=== PATIENT | male | born 1950 | race Caucasian/White ===

== ENCOUNTER → 2019-11-27 08:18 | Outpatient (BNVA) | payer MEDICARE, MEDICAID, SELFPAY | PROVIDERS: PCP General Practice; Visit Provider Anesthesiology | DX: M54.5 Low back pain (principal); G89.29 Other chronic pain; M25.561 Pain in right knee; M25.562 Pain in left knee; M62.838 Other muscle spasm; Z79.891 Long term (current) use of opiate analgesic | CPT/HCPCS: 99214 ==

== ENCOUNTER → 2020-03-22 09:35 | Outpatient (BNVA) | payer MEDICARE, MEDICAID, SELFPAY | PROVIDERS: PCP General Practice; Visit Provider Nurse Practitioner | DX: G89.4 Chronic pain syndrome (principal); M54.2 Cervicalgia; M54.9 Dorsalgia, unspecified; Z79.891 Long term (current) use of opiate analgesic; M53.2X2 Spinal instabilities, cervical region; M50.322 Other cervical disc degeneration at C5-C6 level | CPT/HCPCS: 72040; 99213 ==

== ENCOUNTER 2020-03-22 10:32 | Outpatient (CLI) | payer MEDICARE, MEDICAID, SELFPAY ==
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
== END 2020-03-22 10:33 | disposition home or self-care (01) ==
PROVIDERS: Visit Provider Nurse Practitioner
DX: M53.2X2 Spinal instabilities, cervical region (principal); M50.322 Other cervical disc degeneration at C5-C6 level
CPT/HCPCS: 72040

== ENCOUNTER → 2020-05-25 08:39 | Outpatient (BNVA) | payer MEDICARE, MEDICAID, SELFPAY | PROVIDERS: PCP General Practice; Visit Provider Anesthesiology | DX: G89.4 Chronic pain syndrome (principal); M54.41 Lumbago with sciatica, right side; M54.42 Lumbago with sciatica, left side; M25.561 Pain in right knee; M25.562 Pain in left knee; M54.9 Dorsalgia, unspecified; M54.2 Cervicalgia; Z79.891 Long term (current) use of opiate analgesic | CPT/HCPCS: 99214 ==

== ENCOUNTER → 2020-07-22 08:49 | Outpatient (BNVA) | payer MEDICARE, MEDICAID, SELFPAY | PROVIDERS: PCP General Practice; Visit Provider Anesthesiology | DX: G89.29 Other chronic pain (principal); M54.9 Dorsalgia, unspecified; M54.2 Cervicalgia; M25.561 Pain in right knee; M25.562 Pain in left knee; M62.838 Other muscle spasm; Z79.891 Long term (current) use of opiate analgesic | CPT/HCPCS: 99214 ==

== ENCOUNTER → 2020-09-22 09:10 | Outpatient (BNVA) | payer MEDICARE, MEDICAID, SELFPAY | PROVIDERS: PCP General Practice; Visit Provider Anesthesiology | DX: M54.9 Dorsalgia, unspecified (principal); Z79.891 Long term (current) use of opiate analgesic; M25.561 Pain in right knee; M25.562 Pain in left knee; M54.2 Cervicalgia; G89.29 Other chronic pain | CPT/HCPCS: 99214 ==

== ENCOUNTER → 2020-11-18 09:39 | Outpatient (BNVA) | payer MEDICARE, MEDICAID, SELFPAY | PROVIDERS: PCP General Practice; Visit Provider Anesthesiology | DX: G89.29 Other chronic pain (principal); M54.2 Cervicalgia; M54.9 Dorsalgia, unspecified; M25.561 Pain in right knee; M25.562 Pain in left knee; M62.838 Other muscle spasm; Z79.891 Long term (current) use of opiate analgesic | CPT/HCPCS: 99214 ==

== ENCOUNTER → 2021-01-11 09:50 | Outpatient (BNVA) | payer MEDICARE, MEDICAID, SELFPAY | PROVIDERS: PCP General Practice; Visit Provider Nurse Practitioner | DX: G89.29 Other chronic pain (principal); M54.2 Cervicalgia; M54.9 Dorsalgia, unspecified; M62.838 Other muscle spasm; M25.561 Pain in right knee; M25.562 Pain in left knee; Z79.891 Long term (current) use of opiate analgesic | CPT/HCPCS: 99213 ==

== ENCOUNTER → 2021-04-05 09:41 | Outpatient (BNVA) | payer MEDICARE, MEDICAID, SELFPAY | PROVIDERS: PCP General Practice; Visit Provider Nurse Practitioner | DX: G89.29 Other chronic pain (principal); M54.9 Dorsalgia, unspecified; M54.2 Cervicalgia; M25.512 Pain in left shoulder; M25.561 Pain in right knee; M25.562 Pain in left knee; Z79.891 Long term (current) use of opiate analgesic | CPT/HCPCS: 99213 ==

== ENCOUNTER 2021-05-09 08:38 | Outpatient (CLI) | payer MEDICARE, MEDICAID, SELFPAY ==
--- NOTE | 2021-05-09 08:44 | CT_ITS ---
WS: [id number] CT ABDOMEN PELVIS TECHNIQUE: Contrast-enhanced CT of the abdomen and pelvis with coronal and sagittal reformatted image s. CLINICAL INFORMATION: CYST OF PANCREAS COMPARISON: MRI [address] March 2017. Additional MRI February 2017. DLP: 1117.[address] scans at [facility] use at least one of these dose optimization techniques: automat ed exposure control; mA and/or kV adjustment per patient size (includes targeted exams where dose is matched to clinical indication); or iterative reconstruction. FINDINGS: Previously described cystic appearing pancreatic tail lesion seen on the prior MRI in 2018 measures 9 mm today and is unchanged. No pancreatic ductal dilatation. Otherwise normal appearing ba creatic enhancement. Diffuse fatty infiltration of the liver. Hepatomegaly. Normal gallbladder. Normal spleen. Normal GE j unction. Normal portal vein and splenic vein. Lung bases are well aerated. Adrenal glands are normal. Normal renal parenchymal enhancement. No hydronephrosis. Normal caliber abdominal aorta. Mild aortic calcification. No periaortic or retroperitoneal lymphadenopathy. Urine distended bladder. Enlarged prostate. Sigmoid diverticulosis. No evidence of acute diverticulitis. No evidence of small or large bowel obstruction . Tiny fat-containing umbilical hernia. Fat-containing left inguinal hernia. Prostate measures 3.[address]/CT abdomen pelvis w con* [id number] IMPRESSION: 1. 9 mm cystic appearing lesion tail of the pancreas is unchanged since the pr ior MRI 2018. 2. No pancreatic duct dilatation. 3. Hepatomegaly with diffuse fatty infiltration. 4. No abdominal or pelvic lymphadenopathy. 5. Enlarged prostate with calcification. Recommend correlation PSA. Mild diffu se bladder wall thickening suspicious for bladder outlet obstruction.
[2021-05-09] MEDS: iohexol 300 mg/mL 50 mL Btl PO (09:09)
[2021-05-09] MEDS: iohexol 300 mg/mL 100 mL Btl IV (10:38)
== END 2021-05-09 08:39 | disposition home or self-care (01) ==
PROVIDERS: PCP Optometrist; Visit Provider Family Medicine
DX: K86.2 Cyst of pancreas (principal); N40.0 Benign prostatic hyperplasia without lower urinary tract symptoms; R16.0 Hepatomegaly, not elsewhere classified; K76.0 Fatty (change of) liver, not elsewhere classified
CPT/HCPCS: 74177; Q9967

== ENCOUNTER → 2021-06-22 08:57 | Outpatient (BNVA) | payer MEDICARE, MEDICAID, SELFPAY | PROVIDERS: PCP Optometrist; Visit Provider Nurse Practitioner | DX: G89.29 Other chronic pain (principal); M54.9 Dorsalgia, unspecified; M54.2 Cervicalgia; M25.561 Pain in right knee; M25.562 Pain in left knee; Z79.891 Long term (current) use of opiate analgesic | CPT/HCPCS: 99212; 99214 ==

== ENCOUNTER → 2021-09-20 09:10 | Outpatient (BNVA) | payer MEDICARE, MEDICAID, SELFPAY | PROVIDERS: PCP Optometrist; Visit Provider Anesthesiology | DX: G89.29 Other chronic pain (principal); M54.2 Cervicalgia; M54.50 Low back pain, unspecified; Z79.891 Long term (current) use of opiate analgesic; Z87.891 Personal history of nicotine dependence | CPT/HCPCS: 99214 ==

== ENCOUNTER → 2022-02-02 10:24 | Outpatient (BNVA) | payer MEDICARE, MEDICAID, SELFPAY | PROVIDERS: PCP Optometrist; Visit Provider Internal Medicine Cardiovascular Disease | DX: R07.9 Chest pain, unspecified (principal) | CPT/HCPCS: 99203 ==

== ENCOUNTER → 2024-06-04 10:16 | Outpatient (BNVA) | payer MEDICARE, MEDICAID, SELFPAY | PROVIDERS: PCP Optometrist; Visit Provider Student in an Organized Health Care Education/Training Program | DX: Z12.11 Encounter for screening for malignant neoplasm of colon (principal) | CPT/HCPCS: 99024; 99203 ==

== ENCOUNTER 2024-07-01 07:06 | Outpatient (CLI) | payer MEDICARE, MEDICAID, SELFPAY ==
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
--- NOTE | 2024-07-01 07:19 | MR_ITS ---
WS: [id number] MRI PELVIS WITH AND WITHOUT CONTRAST. COMPARISON: CT pelvis 05/09/2021 Multiplanar, multisequence imaging is performed with and without contrast. MultiHance 20 mL IV. No marrow edema or fracture. Femoral heads are normally seated in the acetabulum. No destructive bone lesions. Mild muscle atrophy. Urinary bladder is well distended with mild wall thickening which is d iffuse. Bladder is slightly overdistended indicating partial bladder outlet obstruction. There is no focal asymmetry. Prostate gland is heterogeneous and enlarged. No mesorectal fat adenopathy and no as cites in the pelvis. Postcontrast imaging is negative for enhancement. MR/MR pelvis wo/w con [id number] IMPRESSION: 1. Mildly distended urinary bladder and prostate gland enlargement. Suspect pa rtial bladder outlet obstruction. 2. No masses are identified within the bladder or mesorectal fat. No adenopath y or ascites. 3. Mildly heterogeneous prostate gland.
--- NOTE | 2024-07-01 07:19 | MR_ITS ---
WS: [id number] MRI ABDOMEN WITH AND WITHOUT CONTRAST. COMPARISON: 09/19/2018 Multiplanar, multisequence imaging is performed with and without contrast. MultiHance 20 mL. Pancreas: Pancreas is normal size. Reidentified is the ovoid 10 x 7 mm cystic mass from the tail of t he pancreas. There is no enhancement. This is probably an IPMN. Very minimal increase in size since 2 018. No solid mass or additional masses are identified. Pancreatic duct and common bile duct are norm al. Very mild hepatic steatosis. Normal size liver and spleen. Tiny hepatic cyst in the RIGHT lobe. Denia l gallbladder and adrenal glands. No renal obstruction. No ascites or adenopathy. MR/MR abdomen wo/w con* [id number] IMPRESSION: 1. Very slight increase in size of the nonenhancing cystic mass in the pancrea tic tail measuring 10 x 7 mm. Minimal increase since 2018. Suspect this is prob ably an IPMN or benign serous neoplasm. 2. No pancreatic duct dilatation or atrophy. 3. Very minimal hepatic steatosis.
[2024-07-01] MEDS: gadobenate dimeglumine 20 mL vial IV (09:46)
== END 2024-07-01 07:07 | disposition home or self-care (01) ==
PROVIDERS: PCP Optometrist; Visit Provider Nurse Practitioner Family
DX: J32.8 Other chronic sinusitis (principal); J30.9 Allergic rhinitis, unspecified; K86.2 Cyst of pancreas; J34.2 Deviated nasal septum
CPT/HCPCS: 70486; 72197; 74183

== ENCOUNTER 2025-03-17 15:25 | Outpatient (CLI) | payer MEDICARE, MEDICAID, SELFPAY ==
--- NOTE | 2025-03-17 15:40 | CT_ITS ---
WS: [id number] CT CERVICAL SPINE HISTORY: SPINAL STENOSIS, CERVICAL REGION TECHNIQUE: Contiguous 2.0 mm axial imaging performed through the entire cervical spine. Sagittal and coronal reformats also performed. All CT scans at [facility] use at least one of these dose optimization techniques: automated exposure control; mA and/or kV adjustment per patient size (includes targeted exams where dose is matched to clinical indication); or iterative reconstruction. DLP: 424.07 mGy.cm COMPARISON: None available. Mild straightening of the normal cervical lordosis. 2 mm anterolisthesis of C4. Moderate disc space narrowing at C5-6 and C6-7. No fractures. Normal facet joint alignment. Lateral masses of C1 and C2 are aligned. Craniocervical junction normal. C2-C3: Shallow LEFT paracentral disc protrusion. C3-C4: Small central disc protrusion with osteophytic ridging and LEFT facet joint arthritis. Mild LEFT foraminal stenosis. C4-C5: Mild annular disc bulging with osteophytic ridging. Advanced RIGHT facet joint arthropathy. Moderate RIGHT foraminal stenosis. C5-C6: Diffuse osteophytic ridging with mild facet arthritis. Mild central and bilateral foraminal stenosis predominantly due to osteophyte disease. C6-C7: Diffuse osteophytic ridging encroaching upon the ventral thecal sac and foramina. Moderate central and bilateral foraminal stenosis, RIGHT greater than LEFT. C7-T1: Mild facet arthritis. Paravertebral soft tissues are normal. Mild carotid artery calcification. CT/CT cervical spin wo con* [id number] IMPRESSION: 1. Moderate degenerative disc space desiccation and narrowing at C5-6 and C6-7 . 2. C3-4: Mild LEFT foraminal stenosis with facet joint arthropathy. 3. Moderate RIGHT foraminal stenosis C4-5. 4. Mild central and bilateral foraminal stenosis at C5-6. 5. Moderate central and bilateral foraminal stenosis at C6-7, RIGHT greater th an LEFT.
--- NOTE | 2025-03-17 15:40 | CT_ITS ---
WS: [id number] CT LUMBAR SPINE, noncontrast. HISTORY: SPINAL STENOSIS, LUMBAR REGION W/O NEUROGENIC CLAUDICATION TECHNIQUE: Contiguous 2.0 mm axial imaging are performed. Sagittal and coronal reformats are submitted and reviewed. All CT scans at [facility] use at least one of these dose optimization techniques: automated exposure control; mA and/or kV adjustment per patient size (includes targeted exams where dose is matched to clinical indication); or iterative reconstruction. IV contrast: None DLP: 1014.08 mGy.cm COMPARISON: MRI lumbar spine 04/24/2017 Sacralization of L5. Nonrib-bearing lumbar vertebral bodies numbered 1 through 4. Sacralization of L5. Similar pattern noted on a prior MRI from 04/24/2017. Posterior alignment is normal. No fractures. L1-2: Normal. L2-3: Mild annular disc bulging encroaching upon the ventral thecal sac. Ligamentum flavum and facet arthritis. Mild foraminal stenosis. L3-4: Diffuse annular disc bulging with ligamentum flavum and facet arthritis. Mild central and bilateral subarticular recess and RIGHT foraminal stenosis. Mild disc encroachment upon the traversing L5 nerve roots. L4-5: Diffuse annular disc bulging with osteophytic ridging and facet arthritis. Shallow LEFT foraminal disc protrusion. Bilateral facet arthritis. Mild central with bilateral subarticular recess stenosis. Moderate to severe RIGHT and mild LEFT foraminal stenosis due to disc and osteophyte disease. There is disc osteophyte contact on the RIGHT L4 and L5 nerve roots. L5-S1: Rudimentary disc. Heavy calcification in the aorta and iliac arteries. CT/CT lumbar spine wo con* [id number] IMPRESSION: 1. L5 is sacralized. 2. Osteophytic ridging and disc bulging at L4-5 resulting in moderate to sever e RIGHT and mild LEFT foraminal stenosis. Additional shallow LEFT foraminal dis c protrusion. 3. Mild central and bilateral subarticular recess and RIGHT foraminal stenosis at L3-4 due to disc and osteophyte disease. Mild disc encroachment upon the tr aversing L5 nerve roots.
== END 2025-03-17 15:26 | disposition home or self-care (01) ==
LOC: RAD 15:28
PROVIDERS: PCP Optometrist; Visit Provider Nurse Practitioner Family
DX: M48.02 Spinal stenosis, cervical region (principal); M50.322 Other cervical disc degeneration at C5-C6 level; M50.323 Other cervical disc degeneration at C6-C7 level; M47.892 Other spondylosis, cervical region; M43.12 Spondylolisthesis, cervical region; M50.21 Other cervical disc displacement, high cervical region; M25.78 Osteophyte, vertebrae; M47.893 Other spondylosis, cervicothoracic region; I65.29 Occlusion and stenosis of unspecified carotid artery; M43.27 Fusion of spine, lumbosacral region; M51.369 Other intervertebral disc degeneration, lumbar region without mention of lumbar back pain or lower extremity pain; M48.061 Spinal stenosis, lumbar region without neurogenic claudication; M24.28 Disorder of ligament, vertebrae; M47.896 Other spondylosis, lumbar region; I70.0 Atherosclerosis of aorta; I70.8 Atherosclerosis of other arteries
CPT/HCPCS: 72125; 72131